=== PATIENT | male | born 1965 | race Caucasian/White ===

== ENCOUNTER → 2018-04-30 11:33 | Outpatient (CLI) | payer MEDICAID, SELFPAY ==
--- NOTE | 2018-04-30 11:36 | XR_ITS ---
EXAM: XR cervical spine 5V HISTORY: ITS.REASON: pain ORDERING PHYSICIAN: Amarilys Smith PATIENT AGE: 52 years COMPARISON: None FINDINGS: There is straightening of the cervical lordosis which may be due to patient positioning or muscle spasm. Mild degenerative disc disease is present at C4-C5 C5-C6 and C6-C7. No significant foraminal narrowing. No lytic or blastic change. No evidence of cervical rib. IMPRESSION: Straightening of lordosis with mild degenerative disease C4-C5, C5-C6, and C6-C7
== END ==
PROVIDERS: PCP Emergency Medicine; Visit Provider Nurse Practitioner Family
DX: M54.2 Cervicalgia (principal)
CPT/HCPCS: 72050